=== PATIENT | male | born 2000 | race Caucasian/White ===

== ENCOUNTER 2019-07-10 12:53 | Emergency (ER) | payer OTHER ==
[2019-07-10 13:06] VITALS: BP 97/46
--- NOTE | 2019-07-10 14:02 | UC ---
Lower Extremity/Ankle HPI - HPI Summary HPI Summary: 18 year old male with no PMH, no prior ankle injuries, sprains, presents after eversion injury to right ankle last night during game, continued to play the game, but noted immedaite swelling, pain afterwards. Unable to flex without severe pain today, continues to have swelling. no bruising. no other injuries , pain. - History of Current Complaint Chief Complaint: UCLowerExtremity Stated Complaint: ANKLE INJURY Time Seen by Provider: 07/10/19 13:58 Hx Obtained From: Patient Onset/Duration: Sudden Onset, Lasting Hours Severity Initially: Moderate Severity Currently: Severe Pain Intensity: 8 Pain Scale Used: 0-10 Numeric Aggravating Factor(s): Standing, Ambulation Alleviating Factor(s): Rest Able to Bear Weight: Yes - only may walk "peg legged" - Allergies/Home Medications Allergies/Adverse Reactions: Allergies Allergy/AdvReac Type Severity Reaction Status Date / Time No Known Allergies Allergy Verified 07/10/19 13:06 Home Medications: Home Medications NK [No Home Medications Reported] 07/10/19 [History Confirmed 07/10/19] PMH/Surg Hx/FS Hx/Imm Hx Previously Healthy: Yes - Surgical History Surgical History: None Surgery Procedure, Year, and Place: pyloric stenosis - Social History Alcohol Use: Occasionally Substance Use Type: None Smoking Status (MU): Never Smoked Tobacco Review of Systems All Other Systems Reviewed And Are Negative: Yes Constitutional: Positive: Negative Musculoskeletal: Positive: Arthralgia, Decreased ROM, Edema, Myalgia Neurological: Positive: Negative Is Patient Immunocompromised?: No Physical Exam Triage Information Reviewed: Yes Appearance: Well-Appearing, No Pain Distress, Well-Nourished Vital Signs: Initial Vital Signs Temp 98 F 07/10/19 13:03 Pulse 67 07/10/19 13:03 Resp 16 07/10/19 13:03 BP 97/46 07/10/19 13:03 Pulse Ox 100 07/10/19 13:03 Vital Signs Reviewed: Yes Eyes: Positive: Conjunctiva Clear Musculoskeletal: Positive: ROM Intact - PROM intact. + pain with AROM with eversion., Edema @ - + edema to distal fibula extending to midfoot laterally. TTP over distal fib, ATFL, TCL. no PTFL pain. no ecchymosis., Other: - no drawer, + ttp over mortise laterally. + squeeze test. Neurological Exam: Normal Neurological: Positive: Alert, Muscle Tone Normal Psychological Exam: Normal Skin Exam: Normal Skin: Positive: Other - no open wounds, sores Lower Extremity Course/Dx - Course Course Of Treatment: Ankle Sprain - Use gel brace for the next week, may wean out of it as tolerated. - Avoid walking/ running on uneven ground - Follow up with [facility] within 1-2 weeks for further evaluation - Rest, Ice, elevate as much as possible. radiograph: Customer Success Specialist: Earl Rosen F, ([id number]) International Freight Forwarder: TYRESE ( NUANCE) Report Date: 07/10/2019 14:07:00 Report Status: Final ====== Start of Report Content Patient Name: SULAIMAN DICKEY Medical Record# : [id number] Ordering Physician: Vanessa IRVIN Acct.#: [id number] : Age: 18 Sex: M Location: [facility] Exam Date: 07/10/19 1407 ADM Status: REG ER Order Information: ANKLE RIGHT 3+VWS Accession Number: [id number] CPT: 12501 INDICATION: Right ankle injury. TECHNIQUE: 3 views of the right ankle were obtained. FINDINGS: Soft tissue swelling is noted along the anterolateral aspect of the ankle. No fracture is seen. Joint spaces appear maintained. IMPRESSION: SOFT TISSUE SWELLING, NO FRACTURE IS SEEN. <Electronically signed by Earl Rosen MD in OV> 07/10/19 1430 Dictated By: Earl Rosen MD Dictated Date/Time: 07/10/19 1429 Transcribed Date/Time: 07/10/191428 Copy to: CC:Lori Townsend MD; Vanessa IRVIN; No Primary Care Phys,NOPCP Imaging - [facility] Imaging - [facility] - [facility] [address] [facility] [address] [place], [place] [id number] [place] [id number] [place] [id number] ph [phone]) ph ([phone]) ph ([phone]) End of Report Content ========= - Differential Dx/Diagnosis Differential Diagnosis/HQI/PQRI: Cellulitis, Contusion, Sprain, Strain, Tendonitis, Tenosynovitis Provider Diagnosis: Ankle sprain Discharge ED - Sign-Out/Discharge Documenting (check all that apply): Patient Departure All imaging exams completed and their final reports reviewed: No Studies - Discharge Plan Condition: Good Disposition: HOME Patient Education Materials: Ankle Sprain (ED), Ankle Stirrup Splint (ED) Referrals: No Primary Care Phys,NOPCP [Primary Care Provider] - [facility] [Outside] Additional Instructions: Ankle Sprain - Use gel brace for the next week, may wean out of it as tolerated. - Avoid walking/ running on uneven ground - Follow up with [facility] within 1-2 weeks for further evaluation - Rest, Ice, elevate as much as possible. - Billing Disposition and Condition Condition: GOOD Disposition: Home
== END 2019-07-10 14:45 | disposition home or self-care (01) ==
LOC: UCEAST 12:53
DX: S93.401A Sprain of unspecified ligament of right ankle, initial encounter (principal); X50.9XXA Other and unspecified overexertion or strenuous movements or postures, initial encounter; Y93.79 Activity, other specified sports and athletics; Y92.39 Other specified sports and athletic area as the place of occurrence of the external cause; Y99.8 Other external cause status
CPT/HCPCS: 99203; G0463